=== PATIENT | female | born 1930 | race Caucasian/White ===

== ENCOUNTER 2017-05-04 14:09 | Inpatient (IN) | payer OTHER, MEDICAID ==
[2017-05-04 15:51] LABS: BASOPHILS % (AUTO) 0.1 % (0.2-1.0); HEMATOCRIT 33.9 % (36.0-47.0); HEMOGLOBIN 11.2 g/dL (12.0-16.0); LYMPHOCYTES # (AUTO) 0.9 X10^3/uL (1.3-2.9); LYMPHOCYTES % (AUTO) 7.6 % (21.0-51.0); MEAN CORPUSCULAR HEMOGLOBIN 30.8 pg (27.0-34.0); MEAN CORPUSCULAR HGB CONC 33.2 g/dL (33.0-35.0); MEAN PLATELET VOLUME 8.7 fL (7.4-11.0); MONOCYTES # (AUTO) 1.1 x10^3/uL (0.3-0.8); MONOCYTES % (AUTO) 8.7 % (0.0-13.0); NEUTROPHILS # (AUTO) 10.2 x10^3/uL (2.2-4.8); NEUTROPHILS % (AUTO) 83.6 % (42.0-75.0); PLATELET COUNT 219 X10^3/uL (150.0-450.0); RED BLOOD COUNT 3.64 X10^6/uL (3.5-5.4); RED CELL DISTRIBUTION WIDTH 15.8 % (11.6-16.5); WHITE BLOOD COUNT 12.2 X10^3/uL (3.6-10.0)
[2017-05-04 15:57] LABS: ALANINE AMINOTRANSFERASE 14 Units/L (12-78); ALKALINE PHOSPHATASE 70 Units/L (46-116); ASPARTATE AMINO TRANSFERASE 23 Units/L (15-37); BLOOD UREA NITROGEN 27 mg/dL (7-18); CALCIUM 8.7 mg/dL (8.5-10.1); CARBON DIOXIDE 25.3 mmol/L (21-32); CHLORIDE 100 mmol/L (98-107); COR CA(FOR HYPOALB) 9.5 mg/dL (8.5-10.1); SODIUM 135 mmol/L (136-145); TOTAL PROTEIN 7.3 g/dL (6.4-8.2); eGFR BLACK RACES > 60 (>60); eGFR NON BLACK RACES 50 (>60)
--- NOTE | 2017-05-04 16:04 | RAD ---
Examination: Portable AP chest History: SOB, cough Comparison reference 05/02/2017 Findings: Continued upper normal heart size with significant pulmonary vascular congestion and slight perivascular edema. There is developing confluent density in the left lower lung. No large pleural e ffusion or pneumothorax is seen. Impression: Stable heart size and persistent CHF. Developing airspace process in the left lower lobe with may represent alveolar edema, atelectasis or pneumonia. Reported By:
[2017-05-04] MEDS ORDERED: ZITHROMAX INJ 500 MG VIAL IV ONE (16:22)
[2017-05-04] MEDS ORDERED: NS 250 ML IV 250 ML IV ONE (16:23)
[2017-05-04] MEDS: ZITHROMAX INJ 500 MG VIAL 500 MG in NS 250 ML IV 250 ML IV SCH (16:28)
[2017-05-04 16:48] LABS: APPEARANCE,URINE HAZY (CLEAR); COLOR,URINE YELLOW (YELLOW); PROTEIN,URINE NEGATIVE (NEGATIVE)
[2017-05-04 16:49] VITALS: BMI 34.6
[2017-05-04 16:49] LABS: AMORPHOUS SEDIMENT,UR 3+ /HPF (NEGATIVE); BACTERIA,URINE TRACE /HPF (NEGATIVE); BILIRUBIN,URINE NEGATIVE (NEGATIVE); BLOOD/HEMOGLOBIN,URINE NEGATIVE (NEGATIVE); GLUCOSE, URINE NEGATIVE (NEGATIVE); KETONES,URINE NEGATIVE (NEGATIVE); LEUKOCYTE ESTERASE ,URINE NEGATIVE (NEGATIVE); NITRITES,URINE NEGATIVE (NEGATIVE); RBC,URINE 0-2 /HPF (NEGATIVE); SQUAMOUS EPITHELIAL CELL,UR NEGATIVE /HPF (NEGATIVE); UROBILINOGEN,URINE NORMAL (NORMAL)
[2017-05-04] MEDS: XOPENEX 1.25 MG/3 ML NEBULE NEB PRN ×2 (17:00→20:19)
[2017-05-04] MEDS ORDERED: NS 50 ML IV 50 ML IV ONE (17:38)
[2017-05-04] MEDS ORDERED: LASIX IVP ONE (18:16)
[2017-05-04 18:47] LABS: ABG BASE EXCESS 1.4 mmol/L (-2.0-2.0); ABG HCO3 27.2 mmol/L (22-26)
[2017-05-04 18:51] LABS: ABG ALLEN TEST POS
[2017-05-04] MEDS: ROCEPHIN VIAL 1 GM 1 GM in NS 50 ML IV + SPIKE MINIBAG* 50 ML IV SCH (19:11)
[2017-05-05 06:03] LABS: BASOPHILS % (AUTO) 0.2 % (0.2-1.0); HEMOGLOBIN 9.8 g/dL (12.0-16.0); LYMPHOCYTES # (AUTO) 1.2 X10^3/uL (1.3-2.9); LYMPHOCYTES % (AUTO) 10.4 % (21.0-51.0); MEAN CORPUSCULAR HEMOGLOBIN 30.9 pg (27.0-34.0); MEAN CORPUSCULAR HGB CONC 33.8 g/dL (33.0-35.0); MEAN CORPUSCULAR VOLUME 91.5 fL (80.0-100.0); MEAN PLATELET VOLUME 8.3 fL (7.4-11.0); MONOCYTES % (AUTO) 8.7 % (0.0-13.0); NEUTROPHILS # (AUTO) 9.1 x10^3/uL (2.2-4.8); NEUTROPHILS % (AUTO) 80.7 % (42.0-75.0); PLATELET COUNT 188 X10^3/uL (150.0-450.0); RED BLOOD COUNT 3.16 X10^6/uL (3.5-5.4); RED CELL DISTRIBUTION WIDTH 15.7 % (11.6-16.5); WHITE BLOOD COUNT 11.2 X10^3/uL (3.6-10.0)
[2017-05-05 07:20] LABS: ALANINE AMINOTRANSFERASE 21 Units/L (12-78); ALBUMIN 2.4 g/dL (3.4-5.0); ALKALINE PHOSPHATASE 59 Units/L (46-116); ASPARTATE AMINO TRANSFERASE 24 Units/L (15-37); BLOOD UREA NITROGEN 25 mg/dL (7-18); CARBON DIOXIDE 26.3 mmol/L (21-32); CHLORIDE 102 mmol/L (98-107); COR CA(FOR HYPOALB) 9.3 mg/dL (8.5-10.1); CREATININE 0.99 mg/dL (0.55-1.02); SODIUM 139 mmol/L (136-145); TOTAL PROTEIN 6.1 g/dL (6.4-8.2); eGFR BLACK RACES > 60 (>60); eGFR NON BLACK RACES 57 (>60)
--- NOTE | 2017-05-05 07:35 | RAD ---
Examination: Portable AP chest History: SOB Comparison reference 05/04/2017 Findings: Stable heart size and no change in position of cardiac pacer. Central vascular congestion a gain noted. Increasing retrocardiac airspace disease, now completely obscuring the diaphragm. No pneu mothorax seen. Bilateral shoulder dislocations again noted. Impression: Stable pulmonary vascular congestion with increasing pneumonia/atelectasis left lower lob e. Move Reported By:
[2017-05-05] MEDS ORDERED: MAGNESIUM SULFATE 1 GM/100 mL PREMIX 1 GM/100 ML BAG IV PRN (07:47)
[2017-05-05] MEDS ORDERED: K-RIDER 10 MEQ/NS 100 ML 10 MEQ/100 ML BAG IV PRN (07:47)
[2017-05-05] MEDS ORDERED: POTASSIUM CHL 40 MEQ/NS 0.45% 500 ML IV PRN (07:47)
[2017-05-05] MEDS ORDERED: POTASSIUM CHL 60 MEQ/NS 0.45% 500 ML IV PRN (07:47)
[2017-05-05] MEDS ORDERED: POTASSIUM CHLORIDE LIQ 20 MEQ UDC PO PRN (07:47)
[2017-05-05] MEDS ORDERED: K-LYTE EFFERVESCENT PO PRN (07:47)
[2017-05-05] MEDS ORDERED: MAG-OX TAB PO PRN (07:47)
--- NOTE | 2017-05-05 08:16 | DR.H&P ---
H&P - History & Physical for Day of: H&P Date: 05/04/17 - Chief Complaint Chief Complaint: sob - Allergies Allergies/Adverse Reactions: Allergies Allergy/AdvReac Type Severity Reaction Status Date / Time diphenhydramine Allergy Verified 05/04/17 14:56 [From Benadryl] - History of Present Illness History of Present Illness: 86 WF DIRECT ADMIT FROM [facility] WITH INCREASED SOB, ABNORMAL CHEST XRAY WITH FINDINGS CONSISTENT WITH CHF. PT HAS HX OF CAD, HTN, OA.PLAN TO ADMIT FOR FURTHER EVALUATION FOR SOB, CXR ON ADMISSION. RESP THERAPY. RESUME HOME MEDS - Past Medical History Past Medical History: Arthritis, Coronary Artery Disease, Hypertension, PUD - Past Surgical History Surgical History: Angioplasty/Stents, Appendectomy, Hysterectomy, Ortho Surgery - Family History Family Medical History: ND, Hypertension - Social History Does patient currently use any type of tobacco product: No Have you used tobacco products in the last 12 months: No Type of Tobacco Use: None Does any household member use tobacco: No Alcohol Use: None Drug Use: None - Medications Home Medications: Amino Acids/Protein Hydrolys [Pro-Stat Max Liquid Packet] 1 packet PO BID [History Confirmed 05/04/17] Azelastine HCl [Astelin Nasal [place]] 1 spray ENOSTRIL Q8H 05/04/17 [History Confirmed 05/04/17] Carbidopa/Levodopa [Sinemet 25-100 mg Tablet] 1 tab PO DAILY 05/04/17 [History Confirmed 05/04/17] Famotidine [Pepcid] 1 tab PO DAILY 05/04/17 [History Confirmed 05/04/17] Fluticasone Nasal Morse [FLONASE NASAL SPRAY *] 2 spr ENOSTRIL DAILY 05/04/17 [ History Confirmed 05/04/17] Loratadine [Claritin] 1 tab PO DAILY 05/04/17 [History Confirmed 05/04/17] Misc Home Med [Patient's Home Medication] 1 oz PO BID 05/04/17 [History Confirmed 05/04/17] Montelukast Sodium [Singulair] 1 tab PO DAILY 05/04/17 [History Confirmed ] Ropinirole HCl [REQUIP 1 MG *] 1 tab PO BID 05/04/17 [History Confirmed 05/04/17 ] Sertraline HCl [ZOLOFT 50 MG *] 1 tab PO DAILY 05/04/17 [History Confirmed 05/04] - Review of Systems Constitutional: Weakness Eyes: No Symptoms Reported ENT: No Symptoms Reported Respiratory: Shortness of Breath, Wheezing Cardiovascular: No Symptoms Reported Gastrointestinal: No Symptoms Reported Genitourinary: No Symptoms Reported Musculoskeletal: Back Pain Skin: No Symptoms Reported Neurological: Weakness - Physical Exam Vital Signs: Temperature 98.4 F Pulse Rate [Right Brachial] 96 Pulse Rate [Left Brachial] 88 Pulse Rate 93 Respiratory Rate 28 Blood Pressure [Left Arm] 163/58 Blood Pressure [Right Arm] 150/76 Blood Pressure 105/55 O2 Sat by Pulse Oximetry 96 Oriented: Person Eyes: Normal Ear: Normal Nose: Normal Throat: Normal Respiratory: Diminished Throughout Cardiovascular: Tachycardia : Normal Auscultation: Bowel Sounds: Normal Palpation: Normal Tenderness: Normal Skin: Decreased Turgur Musculoskeletal: Back:Lumbar Mood Description: Calm Speech Pattern: Clear - Assessment/Plan (1) SOB (shortness of breath) Status: Acute Plan: PLAN TO ADMIT FOR ICU, RESP THERAPY, SUPPLEMENTAL O2. 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 RESUME HOME MEDS (2) Congestive heart failure (CHF) Status: Chronic (3) Chronic kidney disease (CKD) stage G2/A3, mildly decreased glomerular filtration rate (GFR) between 60-89 mL/min/1.73 square meter and albuminuria creatinine ratio greater than 300 mg/g Status: Acute (4) Anemia Status: Chronic (5) Arthritis Status: Chronic (6) CAD (coronary artery disease) Status: Chronic (7) Pacemaker Status: Chronic
[2017-05-05] MEDS: XOPENEX 1.25 MG/3 ML NEBULE NEB PRN ×3 (08:47→16:43)
[2017-05-05] MEDS: ZITHROMAX INJ 500 MG VIAL 500 MG in NS 250 ML IV 250 ML IV SCH (09:16)
[2017-05-05] MEDS: LASIX IVP SCH ×2 (09:16→20:33)
[2017-05-05] MEDS: ROCEPHIN VIAL 1 GM 1 GM in NS 50 ML IV + SPIKE MINIBAG* 50 ML IV SCH (09:48)
[2017-05-05 10:04] LABS: CKMB % 4.8 % (<4); CREATINE KINASE 21 Units/L (26-192); CREATINE KINASE MB < 1.0 ng/mL (0-4.0); TROPONIN I < 0.02 ng/mL (0-1.5)
[2017-05-05] MEDS ORDERED: REQUIP PO SCH (12:00)
[2017-05-05] MEDS ORDERED: PATIENT'S HOME MEDICATION (Benazepril Hcl [Lotensin] 20 MG) PO SCH (12:00)
[2017-05-05] MEDS: LANOXIN PO SCH (13:32)
[2017-05-05] MEDS: SYNTHROID 50 mcg TAB PO SCH (13:32)
[2017-05-05] MEDS: PEPCID TAB 20 MG PO SCH (13:32)
[2017-05-05] MEDS: LOTENSIN TAB 10 MG PO SCH (13:32)
[2017-05-05] MEDS: SINGULAIR TAB 10 MG PO SCH (13:32)
[2017-05-05] MEDS: SINEMET (PLAIN) 25/250 MG PO SCH ×2 (13:32→20:34)
[2017-05-05] MEDS: K-DUR TAB 20 MEQ PO SCH (13:33)
[2017-05-05] MEDS: COREG TAB 6.25 MG PO SCH ×2 (13:33→20:33)
[2017-05-05 18:36] LABS: CKMB % 4.8 % (<4); CREATINE KINASE 21 Units/L (26-192); CREATINE KINASE MB < 1.0 ng/mL (0-4.0); TROPONIN I 0.03 ng/mL (0-1.5)
[2017-05-05] MEDS: TIMOPTIC 0.5% EYE DROPS EACHEYE SCH (21:00)
[2017-05-06] MEDS: XOPENEX 1.25 MG/3 ML NEBULE NEB PRN ×5 (00:47→20:40)
[2017-05-06 01:46] LABS: CREATINE KINASE MB < 1.0 ng/mL (0-4.0); TROPONIN I 0.02 ng/mL (0-1.5)
[2017-05-06 02:06] LABS: CKMB % 4.2 % (<4); CREATINE KINASE 24 Units/L (26-192)
[2017-05-06 05:52] LABS: BASOPHILS % (AUTO) 0.2 % (0.2-1.0); EOSINOPHILS % (AUTO) 0.1 % (0.9-2.9); HEMATOCRIT 33.7 % (36.0-47.0); HEMOGLOBIN 11.1 g/dL (12.0-16.0); LYMPHOCYTES # (AUTO) 1.3 X10^3/uL (1.3-2.9); LYMPHOCYTES % (AUTO) 10.2 % (21.0-51.0); MEAN CORPUSCULAR HEMOGLOBIN 30.3 pg (27.0-34.0); MEAN CORPUSCULAR HGB CONC 32.9 g/dL (33.0-35.0); MEAN CORPUSCULAR VOLUME 92.2 fL (80.0-100.0); MEAN PLATELET VOLUME 8.8 fL (7.4-11.0); MONOCYTES % (AUTO) 7.9 % (0.0-13.0); NEUTROPHILS # (AUTO) 10.1 x10^3/uL (2.2-4.8); NEUTROPHILS % (AUTO) 81.6 % (42.0-75.0); PLATELET COUNT 259 X10^3/uL (150.0-450.0); RED BLOOD COUNT 3.66 X10^6/uL (3.5-5.4); RED CELL DISTRIBUTION WIDTH 15.8 % (11.6-16.5); WHITE BLOOD COUNT 12.3 X10^3/uL (3.6-10.0)
[2017-05-06 06:01] LABS: ALANINE AMINOTRANSFERASE 19 Units/L (12-78); ALBUMIN 2.6 g/dL (3.4-5.0); ALKALINE PHOSPHATASE 107 Units/L (46-116); ASPARTATE AMINO TRANSFERASE 44 Units/L (15-37); BLOOD UREA NITROGEN 24 mg/dL (7-18); CALCIUM 8.6 mg/dL (8.5-10.1); CARBON DIOXIDE 29.1 mmol/L (21-32); CHLORIDE 101 mmol/L (98-107); COR CA(FOR HYPOALB) 9.7 mg/dL (8.5-10.1); SODIUM 136 mmol/L (136-145); eGFR BLACK RACES > 60 (>60); eGFR NON BLACK RACES 56 (>60)
[2017-05-06] MEDS: ROCEPHIN VIAL 1 GM 1 GM in D5W 50 ML IV 50 ML IV SCH (09:54)
[2017-05-06] MEDS: LASIX IVP SCH ×2 (09:55→20:29)
[2017-05-06] MEDS: ZITHROMAX INJ 500 MG VIAL 500 MG in NS 250 ML IV 250 ML IV SCH (09:55)
[2017-05-06] MEDS: SINEMET (PLAIN) 25/250 MG PO SCH ×2 (09:56→20:29)
[2017-05-06] MEDS: PEPCID TAB 20 MG PO SCH (09:56)
[2017-05-06] MEDS: SYNTHROID 50 mcg TAB PO SCH (09:56)
[2017-05-06] MEDS: COREG TAB 6.25 MG PO SCH ×2 (09:56→20:29)
[2017-05-06] MEDS: LOTENSIN TAB 10 MG PO SCH (09:56)
[2017-05-06] MEDS: LANOXIN PO SCH (09:58)
[2017-05-06] MEDS: SINGULAIR TAB 10 MG PO SCH (09:59)
[2017-05-06] MEDS: K-DUR TAB 20 MEQ PO SCH (10:20)
[2017-05-06] MEDS: NORCO 5/325 MG TAB PO PRN ×2 (14:25→21:21)
[2017-05-06] MEDS: TIMOPTIC 0.5% EYE DROPS EACHEYE SCH (21:00)
[2017-05-06] MEDS: TESSALON PERLES PO PRN (21:20)
[2017-05-07] MEDS: XOPENEX 1.25 MG/3 ML NEBULE NEB PRN ×5 (05:12→20:50)
[2017-05-07 05:38] LABS: BASOPHILS % (AUTO) 0.1 % (0.2-1.0); EOSINOPHILS % (AUTO) 0.4 % (0.9-2.9); HEMATOCRIT 32.9 % (36.0-47.0); HEMOGLOBIN 11.1 g/dL (12.0-16.0); LYMPHOCYTES # (AUTO) 1.4 X10^3/uL (1.3-2.9); LYMPHOCYTES % (AUTO) 17.5 % (21.0-51.0); MEAN CORPUSCULAR HGB CONC 33.7 g/dL (33.0-35.0); MEAN PLATELET VOLUME 8.5 fL (7.4-11.0); MONOCYTES # (AUTO) 0.8 x10^3/uL (0.3-0.8); MONOCYTES % (AUTO) 9.7 % (0.0-13.0); NEUTROPHILS # (AUTO) 5.7 x10^3/uL (2.2-4.8); NEUTROPHILS % (AUTO) 72.3 % (42.0-75.0); PLATELET COUNT 231 X10^3/uL (150.0-450.0); RED BLOOD COUNT 3.57 X10^6/uL (3.5-5.4); RED CELL DISTRIBUTION WIDTH 15.4 % (11.6-16.5); WHITE BLOOD COUNT 7.9 X10^3/uL (3.6-10.0)
--- NOTE | 2017-05-07 05:47 | RAD ---
Chest, AP portable Indication: CHF Comparison: 05/05/2017 Findings: Cardiac silhouette enlargement is unchanged. There is unchanged mild pulmonary vascular con gestion with minimal interstitial edema. Left lung infiltrate is mildly worsened. No significant pleu ral effusion. Impression: Worsening left lung infiltrate suggesting pneumonia or alveolar edema. Continued radiographic follow- up recommended. Reported By:
[2017-05-07 06:41] LABS: ALANINE AMINOTRANSFERASE 18 Units/L (12-78); ALBUMIN 2.4 g/dL (3.4-5.0); ALKALINE PHOSPHATASE 91 Units/L (46-116); ASPARTATE AMINO TRANSFERASE 37 Units/L (15-37); BLOOD UREA NITROGEN 23 mg/dL (7-18); CALCIUM 8.3 mg/dL (8.5-10.1); CARBON DIOXIDE 31.3 mmol/L (21-32); CHLORIDE 101 mmol/L (98-107); COR CA(FOR HYPOALB) 9.6 mg/dL (8.5-10.1); CREATININE 0.94 mg/dL (0.55-1.02); SODIUM 141 mmol/L (136-145); TOTAL PROTEIN 6.4 g/dL (6.4-8.2); eGFR BLACK RACES > 60 (>60); eGFR NON BLACK RACES > 60 (>60)
[2017-05-07] MEDS: LASIX IVP SCH ×2 (08:46→20:35)
[2017-05-07] MEDS: ROCEPHIN VIAL 1 GM 1 GM in D5W 50 ML IV 50 ML IV SCH (08:46)
[2017-05-07] MEDS: ZITHROMAX INJ 500 MG VIAL 500 MG in NS 250 ML IV 250 ML IV SCH (08:46)
[2017-05-07] MEDS: K-DUR TAB 20 MEQ PO SCH (08:47)
[2017-05-07] MEDS: SINEMET (PLAIN) 25/250 MG PO SCH ×2 (08:47→20:36)
[2017-05-07] MEDS: LOTENSIN TAB 10 MG PO SCH (08:47)
[2017-05-07] MEDS: COREG TAB 6.25 MG PO SCH ×2 (08:47→20:36)
[2017-05-07] MEDS: SINGULAIR TAB 10 MG PO SCH (08:47)
[2017-05-07] MEDS: SYNTHROID 50 mcg TAB PO SCH (08:48)
[2017-05-07] MEDS: PEPCID TAB 20 MG PO SCH (08:48)
[2017-05-07] MEDS: LANOXIN PO SCH (08:48)
[2017-05-07] MEDS: TIMOPTIC 0.5% EYE DROPS EACHEYE SCH ×2 (20:32→20:34)
[2017-05-07] MEDS: TESSALON PERLES PO PRN (20:36)
[2017-05-07] MEDS: NORCO 5/325 MG TAB PO PRN (20:36)
[2017-05-08] MEDS: XOPENEX 1.25 MG/3 ML NEBULE NEB PRN (01:44)
[2017-05-08 05:40] LABS: BASOPHILS % (AUTO) 0.5 % (0.2-1.0); EOSINOPHILS # (AUTO) 0.1 x10^3/uL (0.0-0.2); EOSINOPHILS % (AUTO) 0.9 % (0.9-2.9); HEMOGLOBIN 11.6 g/dL (12.0-16.0); LYMPHOCYTES # (AUTO) 1.9 X10^3/uL (1.3-2.9); LYMPHOCYTES % (AUTO) 24.2 % (21.0-51.0); MEAN CORPUSCULAR HEMOGLOBIN 30.4 pg (27.0-34.0); MEAN CORPUSCULAR HGB CONC 33.1 g/dL (33.0-35.0); MEAN CORPUSCULAR VOLUME 91.8 fL (80.0-100.0); MEAN PLATELET VOLUME 8.1 fL (7.4-11.0); MONOCYTES # (AUTO) 0.7 x10^3/uL (0.3-0.8); MONOCYTES % (AUTO) 9.4 % (0.0-13.0); NEUTROPHILS # (AUTO) 5.1 x10^3/uL (2.2-4.8); PLATELET COUNT 289 X10^3/uL (150.0-450.0); RED BLOOD COUNT 3.82 X10^6/uL (3.5-5.4); RED CELL DISTRIBUTION WIDTH 15.7 % (11.6-16.5); WHITE BLOOD COUNT 7.8 X10^3/uL (3.6-10.0)
[2017-05-08 06:11] LABS: ALANINE AMINOTRANSFERASE 14 Units/L (12-78); ALBUMIN 2.7 g/dL (3.4-5.0); ALKALINE PHOSPHATASE 104 Units/L (46-116); ASPARTATE AMINO TRANSFERASE 32 Units/L (15-37); BLOOD UREA NITROGEN 23 mg/dL (7-18); CALCIUM 8.7 mg/dL (8.5-10.1); CARBON DIOXIDE 33.3 mmol/L (21-32); CHLORIDE 100 mmol/L (98-107); COR CA(FOR HYPOALB) 9.7 mg/dL (8.5-10.1); CREATININE 0.89 mg/dL (0.55-1.02); SODIUM 141 mmol/L (136-145); TOTAL PROTEIN 7.1 g/dL (6.4-8.2); eGFR BLACK RACES > 60 (>60); eGFR NON BLACK RACES > 60 (>60)
--- NOTE | 2017-05-08 07:37 | RAD ---
Examination: PA and lateral chest History: Cough and pneumonia Comparison reference: 05/07/2017 Findings: Stable upper normal heart size with central vascular congestion. Persistent retrocardiac op acity as previously noted. No evidence for developing large effusion or pneumothorax. Impression: Persistent vascular congestion and a retrocardiac opacity consistent with pneumonia/atele ctasis. No significant change since 1 day earlier. Reported By:
[2017-05-08] MEDS: ROCEPHIN VIAL 1 GM 1 GM in D5W 50 ML IV 50 ML IV SCH ×2 (08:54→10:27)
[2017-05-08] MEDS: LASIX IVP SCH ×2 (08:54→10:27)
[2017-05-08] MEDS: PEPCID TAB 20 MG PO SCH (08:54)
[2017-05-08] MEDS: SINEMET (PLAIN) 25/250 MG PO SCH (08:54)
[2017-05-08] MEDS: LOTENSIN TAB 10 MG PO SCH (08:55)
[2017-05-08] MEDS: K-DUR TAB 20 MEQ PO SCH (08:55)
[2017-05-08] MEDS: COREG TAB 6.25 MG PO SCH (08:55)
[2017-05-08] MEDS: SINGULAIR TAB 10 MG PO SCH (08:55)
[2017-05-08] MEDS: LANOXIN PO SCH (08:55)
[2017-05-08] MEDS: SYNTHROID 50 mcg TAB PO SCH (08:55)
[2017-05-08] MEDS ORDERED: CEFTIN PO ONE (09:55)
[2017-05-08] MEDS ORDERED: LASIX PO ONE (09:57)
[2017-05-08] MEDS: ZITHROMAX INJ 500 MG VIAL 500 MG in NS 250 ML IV 250 ML IV SCH (10:28)
[2017-05-08] MEDS ORDERED: MILK OF MAGNESIA PO PRN (11:07)
[2017-05-08] MEDS ORDERED: COLACE CAP 100 MG PO PRN (11:07)
[2017-05-08 11:37] VITALS: BP 133/58
== END 2017-05-08 13:50 | DRG 293 ==
LOC: UNDOADMOB 14:09 → OBS 14:09 → OBSVTOIN 18:20 → ICU 18:20
PROVIDERS: ADMIT Internal Medicine; ATTEND Obstetrics & Gynecology Obstetrics
DX: I50.9 Heart failure, unspecified (principal); R06.03 Acute respiratory distress; R06.02 Shortness of breath; I25.10 Atherosclerotic heart disease of native coronary artery without angina pectoris; I12.9 Hypertensive chronic kidney disease with stage 1 through stage 4 chronic kidney disease, or unspecified chronic kidney disease; D64.89 Other specified anemias; M13.89 Other specified arthritis, multiple sites; Z95.0 Presence of cardiac pacemaker
CPT/HCPCS: 36415; 36600; 71010; 71020; 80053; 80162; 81001; 82550; 82553; 82803; 83735; 84132; 84484; 85025; 87040; 87070; 87205; 93005; 93010; 94640; 94760; A4222; G0378; J0456; J0696; J1940

== ENCOUNTER → 2017-10-06 | Outpatient (CLI) | payer OTHER, MEDICAID ==
--- NOTE | 2017-10-06 16:30 | RAD ---
History: Wheezing Study: Chest PA/lateral Findings: PA and left lateral projections of the chest are compared to previous study of 05/08/2017. Heart is enlarged as before. Single lead left-sided permanent cardiac pacemaker remains in place. The re is mild prominence of the interstitial markings with no acute process evident. There are mild to m oderate spondylitic changes of the thoracic spine. Bilateral dislocation of the shoulders is again no john. Impression: Chronic bilateral shoulder dislocations. Mild cardiomegaly with pacemaker in place. Limited chronic interstitial disease. Reported By:
== END ==
LOC: RAD 14:36
PROVIDERS: ATTEND Obstetrics & Gynecology Obstetrics
DX: R06.2 Wheezing (principal)
CPT/HCPCS: 71046

== ENCOUNTER 2018-05-06 19:11 | Inpatient (IN) ==
--- NOTE | 2018-05-06 20:23 | DR.GENAD ---
HPI Time Seen Time Seen by Provider: 05/06/18 19:44 Complaint/Symptoms Chief Complaint:: [facility]" her feet are swelling and her color don't look good.and she has a swooshing sound in her heart." pt c/o/a x 3 skin warm and dry swelling noted to lt lower ext pt has a wound on lower lt leg being treated with po meds Source History Provided: Correction Mode of Arrival Mode of Arrival: Stretcher Timing Onset of Chief Complaint: 05/06/18 PMH PMH Past Medical History: Yes Past Medical History: Arthritis, Coronary Artery Disease, Hypertension and PUD Past Surgical History: Yes Surgical History: Angioplasty/Stents, Appendectomy, Hysterectomy and Ortho Surgery Past Surgical History Comment: pacemaker Family History History of Family Medical Conditions: Yes Family Medical History: [place] and Hypertension Social History Does any household member use tobacco: No Alcohol Use: None Do you use any recreational Drugs:: No Lives With: Other Lives Where: Correction infectious screening In the last 2 months have you had wt loss of >10#?: NO Have you had fever, night sweats or hemotysis?: No Have you traveled outside the country in the last 6 months?: No Isolation: Standard PE Vital Signs Vitals: Temperature 99.7 F Pulse Rate [Brachial] 67 Pulse Rate 104 Respiratory Rate 12 Blood Pressure [Left Arm] 144/67 Blood Pressure [Right Arm] 139/62 Blood Pressure 101/73 O2 Sat by Pulse Oximetry 98 General Limitations: No Limitations General Appearance: Alert and In No Apparent Distress Head Head Exam: Normal Inspection, Atraumatic and Normocephalic Eyes Eye exam: Normal Appearance, PERRL and EOMI ENT ENT Exam: Normal Exam, Normal Oropharynx and Normal External Ear Exam External Ear Exam: Normal External Inspection TM/Canal Exam: Bilateral: Normal Nose Exam: Normal Nose Exam and Sinus Tenderness Mouth Exam: Normal Inspection Throat Exam: Normal Inspection Neck Neck Exam: Normal Inspection and Full ROM Chest Chest Inspection: Normal Inspection and Symmetric Chest Wall Rise Respiratory Respiratory Exam: Normal Lung Sounds Bilat Respiratory Exam: Bilateral: Clear to Auscultation Cardiovascular Cardiovascular Exam: Regular Rate and Normal Rhythm Abdominal Exam Abdominal Exam: Normal Inspection, Normal Bowel Sounds and Soft Extremities Extremities Exam: Normal Inspection and Full ROM Back Back Exam: Normal Inspection and Full ROM Neurologic Neurological Exam: Alert, Oriented X3 and CN II-XII Intact Psychiatric Psychiatric Exam: Normal Affect and Normal Mood Skin Skin Exam: Warm and Dry COURSE Treatment Treatment: Hyperkalemia protocol potassium 6.0meq Reevaluation 1st: Improved Consultation Called: 23:25 Consultation Comments: Dr. Jamil agreed to admit to floor for further treatment and evaluation ROR Labs Reviewed Laboratory Results Reviewed?: Yes Result Diagrams: 05/07/18 06:03 05/07/18 06:03 Laboratory: WBC 9.6 X10^3/uL (3.6-10.0) 05/07/18 06:03 RBC 3.41 X10^6/uL (3.5-5.4) L 05/07/18 06:03 Hgb 10.7 g/dL (12.0-16.0) L 05/07/18 06:03 Hct 31.8 % (36.0-47.0) L 05/07/18 06:03 MCV 93.1 fL (80.0-100.0) 05/07/18 06:03 MCH 31.3 pg (27.0-34.0) 05/07/18 06:03 MCHC 33.6 g/dL (33.0-35.0) 05/07/18 06:03 RDW 14.8 % (11.6-16.5) 05/07/18 06:03 Plt Count 227 X10^3/uL (150.0-450.0) 05/07/18 06:03 MPV 9.5 fL (7.4-11.0) 05/07/18 06:03 Neut % (Auto) 68.8 % (42.0-75.0) 05/07/18 06:03 Lymph % (Auto) 19.8 % (21.0-51.0) L 05/07/18 06:03 [place] % (Auto) 8.9 % (0.0-13.0) 05/07/18 06:03 Eos % (Auto) 1.5 % (0.9-2.9) 05/07/18 06:03 Baso % (Auto) 1.0 % (0.2-1.0) 05/07/18 06:03 Neut # (Auto) 6.6 x10^3/uL (2.2-4.8) H 05/07/18 06:03 Lymph # (Auto) 1.9 X10^3/uL (1.3-2.9) 05/07/18 06:03 [place] # (Auto) 0.9 x10^3/uL (0.3-0.8) H 05/07/18 06:03 Eos # (Auto) 0.1 x10^3/uL (0.0-0.2) 05/07/18 06:03 Baso # (Auto) 0.1 X10^3/uL (0.0-0.1) 05/07/18 06:03 Absolute Nucleated RBC 0.0 /100WBC 05/07/18 06:03 Sodium 139 mmol/L (136-145) 05/07/18 06:03 Corrected Sodium TNP 05/07/18 06:03 Potassium 5.6 mmol/L (3.5-5.1) H 05/07/18 06:03 Chloride 106 mmol/L (98-107) 05/07/18 06:03 Carbon Dioxide 22.1 mmol/L (21-32) 05/07/18 06:03 BUN 78 mg/dL (7-18) H 05/07/18 06:03 Creatinine 2.59 mg/dL (0.55-1.02) H 05/07/18 06:03 Est GFR (MDRD) Af Amer 22 (>60) L 05/07/18 06:03 Est GFR (MDRD) Non-Af 19 (>60) L 05/07/18 06:03 Glucose 95 mg/dL (65-99) 05/07/18 06:03 Calcium 8.9 mg/dL (8.5-10.1) 05/07/18 06:03 Corrected Calcium TNP 05/07/18 06:03 Total Bilirubin 0.30 mg/dL (0.2-1.0) 05/07/18 06:03 AST 27 Units/L (15-37) 05/07/18 06:03 ALT 14 Units/L (12-78) 05/07/18 06:03 Alkaline Phosphatase 88 Units/L (46-116) 05/07/18 06:03 C-Reactive Protein 62.40 mg/L (0-3.0) H 05/06/18 20:27 Total Protein 7.7 g/dL (6.4-8.2) 05/07/18 06:03 Albumin 3.4 g/dL (3.4-5.0) 05/07/18 06:03 Globulin 4.3 g/dL (2.5-4.5) 05/07/18 06:03 Albumin/Globulin Ratio 0.8 Ratio (1.1-2.1) L 05/07/18 06:03 Specimen Type Catherized urine 05/07/18 01:10 Urine Color Pale yellow (YELLOW) 05/07/18 01:10 Urine Appearance Clear (CLEAR) 05/07/18 01:10 Urine pH 5.0 (5.0 - 8.0) 05/07/18 01:10 Ur Specific [place] 1.010 (1.000-1.030) 05/07/18 01:10 Urine Protein Negative (NEGATIVE) 05/07/18 01:10 Urine Glucose (UA) Negative (NEGATIVE) 05/07/18 01:10 Urine Ketones Negative (NEGATIVE) 05/07/18 01:10 Urine Occult Blood Negative (NEGATIVE) 05/07/18 01:10 Urine Nitrite Negative (NEGATIVE) 05/07/18 01:10 Urine Bilirubin Negative (NEGATIVE) 05/07/18 01:10 Urine Urobilinogen Normal (NORMAL) 05/07/18 01:10 Ur Leukocyte Esterase 1+ (NEGATIVE) 05/07/18 01:10 Urine RBC None seen /HPF (NONE SEEN) 05/07/18 01:10 Urine WBC 3-5 /HPF (NONE SEEN) 05/07/18 01:10 Ur Squamous Epith Cells Rare /HPF (NEGATIVE) 05/07/18 01:10 Amorphous Sediment 1+ /HPF (NEGATIVE) 05/07/18 01:10 Urine Bacteria Negative /HPF (NEGATIVE) 05/07/18 01:10 Ur Culture Indicated? Yes/culture set up 05/07/18 01:10 Other Results Comments: Chest: Overlying artifact with a questionable 2cm nodule along the left upper lobe. Recommend a follow-up PA and later chest orCT scan. Stable cardiomegaly and mild pulmonary interstitial edema. Questionable small left pleural effusion. No change in the left pacemaker XRAY XRAY Interpreted by: Radiologist Diagnosis Discharge Problem: Acute hyperkalemia, Prerenal azotemia
[2018-05-06 20:33] LABS: BASOPHILS # (AUTO) 0.1 X10^3/uL (0.0-0.1); BASOPHILS % (AUTO) 0.7 % (0.2-1.0); EOSINOPHILS # (AUTO) 0.2 x10^3/uL (0.0-0.2); EOSINOPHILS % (AUTO) 2.6 % (0.9-2.9); HEMATOCRIT 32.8 % (36.0-47.0); HEMOGLOBIN 10.7 g/dL (12.0-16.0); LYMPHOCYTES # (AUTO) 1.5 X10^3/uL (1.3-2.9); LYMPHOCYTES % (AUTO) 18.2 % (21.0-51.0); MEAN CORPUSCULAR HEMOGLOBIN 30.6 pg (27.0-34.0); MEAN CORPUSCULAR HGB CONC 32.6 g/dL (33.0-35.0); MEAN CORPUSCULAR VOLUME 93.7 fL (80.0-100.0); MEAN PLATELET VOLUME 9.2 fL (7.4-11.0); MONOCYTES # (AUTO) 0.8 x10^3/uL (0.3-0.8); MONOCYTES % (AUTO) 10.1 % (0.0-13.0); NEUTROPHILS # (AUTO) 5.7 x10^3/uL (2.2-4.8); NEUTROPHILS % (AUTO) 68.4 % (42.0-75.0); PLATELET COUNT 214 X10^3/uL (150.0-450.0); WHITE BLOOD COUNT 8.3 X10^3/uL (3.6-10.0)
[2018-05-06 20:41] LABS: BLOOD UREA NITROGEN 82 mg/dL (7-18); CALCIUM 8.7 mg/dL (8.5-10.1); CARBON DIOXIDE 21.4 mmol/L (21-32); CHLORIDE 108 mmol/L (98-107); CREATININE 2.71 mg/dL (0.55-1.02); SODIUM 140 mmol/L (136-145); eGFR NON BLACK RACES 18 (>60)
[2018-05-06 20:45] LABS: ALANINE AMINOTRANSFERASE 8 Units/L (12-78); ALBUMIN 3.3 g/dL (3.4-5.0); ALKALINE PHOSPHATASE 85 Units/L (46-116); ASPARTATE AMINO TRANSFERASE 16 Units/L (15-37); COR CA(FOR HYPOALB) 9.3 mg/dL (8.5-10.1); TOTAL PROTEIN 7.5 g/dL (6.4-8.2)
[2018-05-06] MEDS ORDERED: LASIX IVP ONE ×2 (20:52→21:04)
[2018-05-06] MEDS ORDERED: D50W ABBOJECT SYR IV ONE (20:52)
[2018-05-06] MEDS ORDERED: KAYEXALATE SUSP PO ONE ×2 (20:52→23:50)
[2018-05-06] MEDS ORDERED: CALCIUM GLUCONATE 10% IV ONE ×2 (20:52→20:57)
[2018-05-06] MEDS ORDERED: SODIUM BICARBONATE 8.4% INJ ADULT IVP ONE (20:52)
[2018-05-06] MEDS ORDERED: HumuLIN R IV ONE (20:54)
[2018-05-06] MEDS ORDERED: HumuLIN R ONE (20:58)
[2018-05-06] MEDS ORDERED: D50W ABBOJECT SYR ONE (20:58)
[2018-05-06] MEDS ORDERED: SODIUM BICARBONATE 8.4% INJ ADULT ONE (20:59)
[2018-05-06] MEDS ORDERED: NS 1000 ML 1,000 ML ONE (21:22)
--- NOTE | 2018-05-06 21:40 | RAD ---
History: Pain Exam: Portable chest Comparison: 10/06/2017 Technique: Portable AP chest Findings: The heart is mildly enlarged but unchanged. The pulmonary vessels are prominent centrally but unchanged. There are diffuse mild increased interstitial markings throughout which is more prominent . There is a small rounded opacity along the left upper lobe measuring 2 cm which is more prominent . There is a left pacemaker and unipolar lead in place which is unchanged . There is overlying EKG lead and tubing artifact. IMPRESSION: Overlying artifact with a questionable 2 cm nodule along the left upper lobe . Recommend a follow-up PA and lateral chest or CT scan. Stable cardiomegaly and mild pulmonary interstitial edema. Questionable small left pleural effusion . No change in the left pacemaker. Reported By:
[2018-05-07 01:33] LABS: BILIRUBIN,URINE NEGATIVE (NEGATIVE); BLOOD/HEMOGLOBIN,URINE NEGATIVE (NEGATIVE); GLUCOSE, URINE NEGATIVE (NEGATIVE); KETONES,URINE NEGATIVE (NEGATIVE); LEUKOCYTE ESTERASE ,URINE 1+ (NEGATIVE); NITRITES,URINE NEGATIVE (NEGATIVE); PROTEIN,URINE NEGATIVE (NEGATIVE); UROBILINOGEN,URINE NORMAL (NORMAL)
[2018-05-07 01:44] LABS: AMORPHOUS SEDIMENT,UR 1+ /HPF (NEGATIVE); APPEARANCE,URINE CLEAR (CLEAR); BACTERIA,URINE NEGATIVE /HPF (NEGATIVE); COLOR,URINE PALE YELLOW (YELLOW); RBC,URINE NONE SEEN /HPF (NONE SEEN); SQUAMOUS EPITHELIAL CELL,UR RARE /HPF (NEGATIVE)
[2018-05-07] MEDS ORDERED: NS 1000 ML 1,000 ML IV SCH (02:00)
[2018-05-07] MEDS: DOBUTAMINE HCL 1,000 MG in D5W 250 ML IV 170 ML IV PRN ×3 (02:50→12:10)
[2018-05-07 03:06] VITALS: BMI 30.7
[2018-05-07 06:33] LABS: BASOPHILS # (AUTO) 0.1 X10^3/uL (0.0-0.1); EOSINOPHILS # (AUTO) 0.1 x10^3/uL (0.0-0.2); EOSINOPHILS % (AUTO) 1.5 % (0.9-2.9); HEMATOCRIT 31.8 % (36.0-47.0); HEMOGLOBIN 10.7 g/dL (12.0-16.0); LYMPHOCYTES # (AUTO) 1.9 X10^3/uL (1.3-2.9); LYMPHOCYTES % (AUTO) 19.8 % (21.0-51.0); MEAN CORPUSCULAR HEMOGLOBIN 31.3 pg (27.0-34.0); MEAN CORPUSCULAR HGB CONC 33.6 g/dL (33.0-35.0); MEAN CORPUSCULAR VOLUME 93.1 fL (80.0-100.0); MEAN PLATELET VOLUME 9.5 fL (7.4-11.0); MONOCYTES # (AUTO) 0.9 x10^3/uL (0.3-0.8); MONOCYTES % (AUTO) 8.9 % (0.0-13.0); NEUTROPHILS # (AUTO) 6.6 x10^3/uL (2.2-4.8); NEUTROPHILS % (AUTO) 68.8 % (42.0-75.0); PLATELET COUNT 227 X10^3/uL (150.0-450.0); RED BLOOD COUNT 3.41 X10^6/uL (3.5-5.4); RED CELL DISTRIBUTION WIDTH 14.8 % (11.6-16.5); WHITE BLOOD COUNT 9.6 X10^3/uL (3.6-10.0)
[2018-05-07 06:45] LABS: ALANINE AMINOTRANSFERASE 14 Units/L (12-78); ALBUMIN 3.4 g/dL (3.4-5.0); ALKALINE PHOSPHATASE 88 Units/L (46-116); ASPARTATE AMINO TRANSFERASE 27 Units/L (15-37); BLOOD UREA NITROGEN 78 mg/dL (7-18); CALCIUM 8.9 mg/dL (8.5-10.1); CARBON DIOXIDE 22.1 mmol/L (21-32); CHLORIDE 106 mmol/L (98-107); CREATININE 2.59 mg/dL (0.55-1.02); SODIUM 139 mmol/L (136-145); TOTAL PROTEIN 7.7 g/dL (6.4-8.2); eGFR NON BLACK RACES 19 (>60)
[2018-05-07] MEDS ORDERED: ASTELIN NASAL SPRAY ENOSTRIL ONE (06:50)
[2018-05-07] MEDS: ASTELIN NASAL SPRAY ENOSTRIL SCH ×3 (06:55→21:37)
[2018-05-07] MEDS: FLONASE NASAL SPRAY ENOSTRIL SCH (08:14)
[2018-05-07] MEDS: NYSTATIN POWDER TOP SCH ×2 (08:14→21:37)
[2018-05-07] MEDS: LASIX PO SCH (08:14)
[2018-05-07] MEDS: CLARITIN PO SCH (08:14)
[2018-05-07] MEDS ORDERED: COREG TAB 6.25 MG PO SCH (09:00)
[2018-05-07] MEDS ORDERED: REQUIP PO SCH (09:00)
[2018-05-07] MEDS: SINEMET (PLAIN) 25/250 MG PO SCH (09:20)
[2018-05-07] MEDS: SYNTHROID 50 mcg TAB PO SCH (09:20)
[2018-05-07] MEDS: PEPCID TAB 20 MG PO SCH (09:20)
[2018-05-07] MEDS ORDERED: KAYEXALATE SUSP PO ONE (10:26)
[2018-05-07] MEDS ORDERED: COREG TAB 12.5 MG PO SCH (15:00)
[2018-05-07] MEDS ORDERED: SNACK - Diabetic Appropriate PO SCH (20:00)
[2018-05-07] MEDS ORDERED: COREG TAB 6.25 MG PO ONE (21:00)
--- NOTE | 2018-05-08 06:12 | RAD ---
HISTORY: Bilateral foot swelling. Chest pain Study: Single-view chest Comparison: 05/06/2018. Findings: Left-sided pacemaker is present with intact lead. Trachea is midline. There is cardiomegaly with atherosclerotic calcification and uncoiling of the aortic arch. Diffuse increased interstitial markings are present throughout both lungs, increasing in prominence compared to the prior study. Findings have the appearance COPD with very mild superimposed CHF. No consolidation or pleural fluid is seen. There is no evidence of acute osseous abnormality. There is anterior dislocation of both humeral heads, chronic in appearance. IMPRESSION: Cardiomegaly, pulmonary vascular congestion and signs of mild CHF versus fluid overload. No consolidation is seen. There is underlying COPD. Addendum: The 2 cm nodular density seen involving the left lung apex is not appreciated on today's study. This may have been artifactual. Reported By:
[2018-05-08 06:33] LABS: BASOPHILS % (AUTO) 0.5 % (0.2-1.0); EOSINOPHILS # (AUTO) 0.1 x10^3/uL (0.0-0.2); EOSINOPHILS % (AUTO) 1.7 % (0.9-2.9); HEMATOCRIT 31.6 % (36.0-47.0); HEMOGLOBIN 10.6 g/dL (12.0-16.0); LYMPHOCYTES # (AUTO) 1.2 X10^3/uL (1.3-2.9); LYMPHOCYTES % (AUTO) 13.6 % (21.0-51.0); MEAN CORPUSCULAR HGB CONC 33.6 g/dL (33.0-35.0); MEAN CORPUSCULAR VOLUME 92.3 fL (80.0-100.0); MEAN PLATELET VOLUME 9.4 fL (7.4-11.0); MONOCYTES # (AUTO) 0.8 x10^3/uL (0.3-0.8); MONOCYTES % (AUTO) 8.8 % (0.0-13.0); NEUTROPHILS # (AUTO) 6.5 x10^3/uL (2.2-4.8); NEUTROPHILS % (AUTO) 75.4 % (42.0-75.0); PLATELET COUNT 216 X10^3/uL (150.0-450.0); RED BLOOD COUNT 3.42 X10^6/uL (3.5-5.4); RED CELL DISTRIBUTION WIDTH 14.6 % (11.6-16.5); WHITE BLOOD COUNT 8.6 X10^3/uL (3.6-10.0)
[2018-05-08 06:45] LABS: ALANINE AMINOTRANSFERASE 17 Units/L (12-78); ALBUMIN 3.1 g/dL (3.4-5.0); ALKALINE PHOSPHATASE 88 Units/L (46-116); ASPARTATE AMINO TRANSFERASE 29 Units/L (15-37); BLOOD UREA NITROGEN 64 mg/dL (7-18); CALCIUM 8.6 mg/dL (8.5-10.1); CARBON DIOXIDE 19.4 mmol/L (21-32); CHLORIDE 106 mmol/L (98-107); COR CA(FOR HYPOALB) 9.3 mg/dL (8.5-10.1); CREATININE 2.13 mg/dL (0.55-1.02); SODIUM 140 mmol/L (136-145); TOTAL PROTEIN 7.4 g/dL (6.4-8.2); eGFR NON BLACK RACES 23 (>60)
[2018-05-08] MEDS: ASTELIN NASAL SPRAY ENOSTRIL SCH (06:46)
[2018-05-08 07:09] LABS: IRON 30 ug/dL (50-175)
[2018-05-08] MEDS: CLARITIN PO SCH (09:44)
[2018-05-08] MEDS: LASIX PO SCH (09:44)
[2018-05-08] MEDS: PEPCID TAB 20 MG PO SCH (09:44)
[2018-05-08] MEDS: NYSTATIN POWDER TOP SCH (09:44)
[2018-05-08] MEDS: FLONASE NASAL SPRAY ENOSTRIL SCH (09:44)
[2018-05-08] MEDS: SINEMET (PLAIN) 25/250 MG PO SCH (09:45)
[2018-05-08] MEDS: SYNTHROID 50 mcg TAB PO SCH (09:45)
[2018-05-08] MEDS ORDERED: DULCOLAX SUPPOSITORY 10 MG RECTAL ONE (11:17)
[2018-05-08 12:07] VITALS: BP 131/54
[2018-05-11] MEDS ORDERED: LYRICA CAP 50 MG PO ONE (22:03)
== END 2018-05-08 12:20 | DRG 292 ==
LOC: ER 19:12 → ICU 23:49
PROVIDERS: ADMIT Obstetrics & Gynecology Obstetrics; ATTEND Obstetrics & Gynecology Obstetrics
DX: I50.9 Heart failure, unspecified; I25.10 Atherosclerotic heart disease of native coronary artery without angina pectoris; Z95.0 Presence of cardiac pacemaker; R91.1 Solitary pulmonary nodule; R53.1 Weakness; N18.9 Chronic kidney disease, unspecified; N17.8 Other acute kidney failure; M79.89 Other specified soft tissue disorders; R60.0 Localized edema; R26.89 Other abnormalities of gait and mobility; F03.90 Unspecified dementia, unspecified severity, without behavioral disturbance, psychotic disturbance, mood disturbance, and anxiety; E86.0 Dehydration; E87.5 Hyperkalemia; M13.89 Other specified arthritis, multiple sites; R79.82 Elevated C-reactive protein (CRP); R79.89 Other specified abnormal findings of blood chemistry; I12.9 Hypertensive chronic kidney disease with stage 1 through stage 4 chronic kidney disease, or unspecified chronic kidney disease
CPT/HCPCS: 36415; 51702; 71010; 71045; 80053; 81001; 82607; 82728; 82746; 83540; 84132; 84466; 85025; 86140; 87086; 93306; 96365; 96367; 96374; 96375; 97163; 97167; 99283; 99285; A4222; J0610; J1250; J1815; J1940; J3490; J7030; J7060